=== PATIENT | female | born 1990 | race Caucasian/White ===

== ENCOUNTER 2018-08-15 13:37 | Emergency (ER) | payer OTHER ==
[~2018-08-15] VITALS: Ht 157.5 cm; Wt 67.1 kg
[2018-08-15] MEDS ORDERED: DEXAMETHASONE SOD PHOS 10 MG/1 ML VIAL IM NR (14:15)
[2018-08-15] MEDS ORDERED: KETOROLAC TROMETHAMINE 60 MG/2 ML VIAL IM NR (14:15)
[2018-08-15] MEDS ORDERED: CYCLOBENZAPRINE HCL 10 MG TAB PO NR (14:15)
--- NOTE | 2018-08-15 15:19 | Diagnostic Imaging Report ---
Exam: Lumbar spine 2 views History: Back pain Comparison: None. Findings: No fracture. Leftward lumbar curvature measuring 32 degrees taken from T12 through L3 with left lateral apex at L2. No significant disc space narrowing or facet arthropathy. Impression: Leftward lumbar scoliosis measuring 32 degrees Signed by: Dr. Nikko Lewis M.D. on 08/15/2018 3:15 PM
[2018-08-15 15:55] VITALS: BP 114/80
== END 2018-08-15 15:57 | disposition home or self-care (01) ==
LOC: ER 13:37
DX: M54.5 Low back pain (principal); E78.5 Hyperlipidemia, unspecified; F32.9 Major depressive disorder, single episode, unspecified
CPT/HCPCS: 72100; 81025; 99283; J1100; J1885

== ENCOUNTER 2025-06-27 14:24 | Emergency (ER) | payer OTHER ==
[~2025-06-27] VITALS: Ht 157.5 cm; Wt 65.8 kg
[2025-06-27 15:20] VITALS: TEMP 98.7
[2025-06-27 15:48] LABS: BASOPHILS % 0.6 % (0.0-1.0); EOSINOPHILS % 0.4 % (0.0-6.0); LYMPHOCYTES % 30.7 % (18.0-39.1); MONOCYTES % 8.4 % (4.4-11.3); NEUTROPHILS % 57.6 % (38.7-80.0); RED CELL DISTRIBUTION WIDTH 14.0 % (11.7-14.4)
[2025-06-27] MEDS: LORAZEPAM INJ 2 MG/ML VIAL IV ONE (15:52)
[2025-06-27] MEDS: SODIUM CHLORIDE 0.9% 1000ML 1,000 ML IV STA (15:52)
[2025-06-27 15:57] LABS: AMPHETAMINES SCREEN,URINE POSITIVE (NEGATIVE); LEUKOCYTE ESTERASE ,URINE TRACE (NEGATIVE); OPIATES SCREEN,URINE NEGATIVE (NEGATIVE); PROTEIN,URINE DIPSTICK 1+ (NEGATIVE)
[2025-06-27 15:58] LABS: CANNABINOIDS SCREEN,URINE NEGATIVE (NEGATIVE); COCAINE SCREEN,URINE NEGATIVE (NEGATIVE); METHADONE SCREEN, URINE NEGATIVE (NEGATIVE); URINE UROBILINOGEN 2 mg/dL (0.2 - 1)
[2025-06-27 16:00] LABS: EPITHELIAL CELLS,URINE MANY /LPF; WBC,URINE (MAN) 0-5 /HPF (0-5)
[2025-06-27 16:01] LABS: EST GLOMERULAR FILTRATION RATE 117 ML/MIN (>=60)
[2025-06-27] MEDS: MAGNESIUM/ALUMINUM/SIMETHICONE 30 ML UDC PO ONE (16:05)
[2025-06-27] MEDS: BELLADONNA ALK/PHENOBARBITAL 5 ML UDC PO ONE (16:05)
[2025-06-27 16:08] LABS: INR 0.97
[2025-06-27 18:00] VITALS: PULSE 87; RESP 21
[2025-06-27 18:27] VITALS: BP 143/95; O2SAT 95
== END 2025-06-27 18:07 | disposition home or self-care (01) ==
LOC: ER 15:04
DX: R42 Dizziness and giddiness (principal); K21.9 Gastro-esophageal reflux disease without esophagitis; R10.13 Epigastric pain; E78.5 Hyperlipidemia, unspecified; F41.9 Anxiety disorder, unspecified; Z87.442 Personal history of urinary calculi
CPT/HCPCS: 36415; 71045; 80053; 80307; 81001; 83735; 83880; 84484; 84702; 85025; 85379; 85610; 85730; 93005; 99284; J2060; J2470; J7030